=== PATIENT | male | born 1955 | race Caucasian/White ===

== ENCOUNTER 2016-05-19 07:45 | Emergency (ER) | payer BC ==
[~2016-05-19] VITALS: Ht 167.6 cm; Wt 98.1 kg
[~2016-05-19 07:45] MED LIST: CEPH500C3 PO; PROT40TA PO
[2016-05-19 07:49] VITALS: BP 135/93; PULSE 53; RESP 16; TEMP 97.7; O2SAT 97
[2016-05-19] MEDS ORDERED: POLY10O EACH EYE (08:29)
--- NOTE | 2016-05-19 08:30 | PD ---
HPI Chief Complaint: Cold / Flu Symptoms Time Seen by Provider: 08:26 Travel History International Travel<30 days: No Contact w/Intl Traveler<30days: No Traveled to known affect area: No History of Present Illness HPI Patient presents with bilateral eye redness or tearing and matting for 3 days. Initially started in the left eye and then moved to the right. Denies any loss of vision. Denies any nausea vomiting diarrhea or fever. Denies any exposure to metal or sand. PFSH Past Medical History Hx Anticoagulant Therapy: No Autoimmune Disease: No Cancer: No Cardiovascular Problems: No Chemotherapy: No Diabetes: No Diminished Hearing: No Genitourinary: No Hiatal Hernia: Yes (IN THE PAST ) Implanted Vascular Access Dvce: No Musculoskeletal: Yes (RLS) Neurologic: No Psychiatric: No Reproductive: No Respiratory: No Radiation Therapy: No Thyroid Disease: No Tetanus Vaccination: < 5 Years Past Surgical History Pacemaker: No Social History Alcohol Use: Yes (SOCIAL) Tobacco Use: No (QUIT YEARS AGO.) Substance Use: No Allergies-Medications (Allergen,Severity, Reaction): Coded Allergies: No Known Allergies (Unverified , 05/19/16) Reported Meds & Prescriptions Reported Meds & Active Scripts Active No Active Prescriptions or Reported Medications Review of Systems General / Constitutional: No: Fever Eyes: Positive: Drainage, Redness, Pain, Tearing, No: Visual changes HENT: No: Headaches Cardiovascular: No: Chest Pain or Discomfort Respiratory: No: Shortness of Breath Gastrointestinal: No: Abdominal Pain Genitourinary: No: Dysuria Musculoskeletal: No: Pain Skin: No Rash Neurologic: No: Weakness Psychiatric: No: Depression Endocrine: No: Polydipsia Hematologic/Lymphatic: No: Easy Bruising Physical Exam Narrative GENERAL: Well-nourished, well-developed patient. SKIN: Warm and dry. HEAD: Normocephalic. EYES: Pupils equal round reactive light and accommodation bilateral conjunctiva is erythematous with matting noted to the bilateral lower eyelids NECK: Supple, trachea midline. No JVD or lymphadenopathy. CARDIOVASCULAR: Regular rate and rhythm without murmurs, gallops, or rubs. RESPIRATORY: Breath sounds equal bilaterally. No accessory muscle use. GASTROINTESTINAL: Abdomen soft, non-tender, nondistended. MUSCULOSKELETAL: No cyanosis, or edema. BACK: Nontender without obvious deformity. No CVA tenderness. Data Data Last Documented VS Vital Signs Date Time Temp Pulse Resp B/P Pulse Ox O2 Delivery O2 Flow Rate FiO2 05/19/16 07:49 97.7 53 16 135/93 97 MDM Medical Decision Making Medical Screen Exam Complete: Yes Emergency Medical Condition: Yes Differential Diagnosis Conjunctivitis, corneal abrasion, uveitis, blepharitis Narrative Course Assessment and plan discussed the patient at bedside Diagnosis Primary Impression: Conjunctivitis Qualified Code: H10.33 - Acute conjunctivitis of both eyes, unspecified acute conjunctivitis type Patient Instructions: General Instructions Additional Instructions: Encourage frequent handwashing, eye drops as prescribed. Motrin or Tylenol for discomfort. Please provide work note. Med/Other Pt SpecificInfo: Prescription(s) given Scripts Polymyxin B-Trimethoprim Opth Drops (Polytrim Opth Drops)10,000-0.1 Unit/Ml-% Soln1 Drop EACH EYE Q4HR 7 Days Ref 0 Prov:Minh Perez MD 05/19/16 Disposition: 01 DISCHARGE HOME Condition: Good Minh Perez MD May 19, 2016 08:30
== END 2016-05-19 08:45 | disposition home or self-care (01) ==
LOC: PHED 07:45
DX: H10.33 Unspecified acute conjunctivitis, bilateral (principal); Z87.39 Personal history of other diseases of the musculoskeletal system and connective tissue; Z87.891 Personal history of nicotine dependence
CPT/HCPCS: 99282